=== PATIENT | female | born 1985 | race Caucasian/White ===

== ENCOUNTER 2017-01-28 08:00 | Emergency (ER) | payer OTHER ==
[~2017-01-28] VITALS: Wt 72.0 kg
--- NOTE | 2017-01-28 08:53 | RADRPT ---
PROCEDURE: US OB. CLINICAL INDICATION: Pelvic pain. TECHNIQUE: Transabdominal and transvaginal imaging of the uterus was performed. COMPARISON: 10/18/2014. FINDINGS: A single intrauterine is present with identification of a gestational sac, pole, and yolk sac. [place] rump length measures 6.6 cm, corresponding to a gestational age of 12 weeks 6 days. Real time examination shows cardiac activity. The heart rate is 161 beats per minute. No myoma or adnexal mass. There is a dominant follicle within the right ovary measuring up to 2 cm. Placenta is posterior in location. IMPRESSION: 1. Single viable intrauterine gestation of approximately 12 weeks 6 days. The estimated date of de livery is 08/06/2017 on the basis of this examination. 2. Examination is within normal limits. RPTAT: EE .Bryant Rivera MD, Date Time Electronically viewed and signed by .Bryant Rivera MD, on 01/28/2017 08:58 .C/
[2017-01-28 09:03] LABS: ADD SCAN DIFF NO
[2017-01-28 09:06] LABS: BASOPHIL # 0.1 10^3/ul (0.0-0.1); BASOPHILS % 0.5 % (0.0-2.0); EOSINOPHILS # 0.2 10^3/ul (0.0-0.5); EOSINOPHILS % 1.4 % (0.0-7.0); HEMATOCRIT 36.7 % (37.0-47.0); HEMOGLOBIN 12.4 g/dl (12.0-16.0); LYMPHOCYTES # 2.5 10^3/ul (0.8-2.9); LYMPHOCYTES % 20.1 % (15.0-51.0); MEAN CORPUSCULAR HEMOGLOBIN 28.7 pg (29.0-33.0); MEAN CORPUSCULAR HGB CONC 33.8 g/dl (32.0-37.0); MEAN PLATELET VOLUME 9.1 fl (7.4-10.4); MONOCYTE # 0.7 10^3/ul (0.3-0.9); MONOCYTES % 5.7 % (0.0-11.0); NEUTROPHIL # 8.9 10^3/ul (1.6-7.5); NEUTROPHILS % 71.8 % (39.0-77.0); PLATELET COUNT 301 10^3/UL (140-415); RED BLOOD COUNT 4.32 10^6/ul (4.20-5.40); RED CELL DISTRIBUTION WIDTH 12.5 % (11.5-14.5); WHITE BLOOD COUNT 12.4 10^3/ul (4.8-10.8)
[2017-01-28 09:25] LABS: ADD UMIC YES; UR ASCORBIC ACID NEGATIVE (NEGATIVE); UR BILIRUBIN (Dip) NEGATIVE (NEGATIVE); UR BLOOD (Dip) NEGATIVE (NEGATIVE); UR CLARITY SLIGHTLY CLOUDY (CLEAR); UR COLOR YELLOW (YELLOW); UR GLUCOSE (Dip) NEGATIVE (NEGATIVE); UR KETONES (Dip) NEGATIVE (NEGATIVE); UR LEUKOCYTE ESTERASE (Dip) 1+ Leu/ul (NEGATIVE); UR MUCUS FEW /HPF (NONE SEEN); UR NITRITE (Dip) NEGATIVE (NEGATIVE); UR RBC 1 /HPF (0-5); UR SPECIFIC GRAVITY (Dip) 1.011 (1.003-1.030); UR SQUAMOUS EPITHELIAL CELL FEW /HPF (FEW); UR TOTAL PROTEIN (Dip) NEGATIVE (NEGATIVE); UR UROBILINOGEN (Dip) NEGATIVE (NEGATIVE)
[2017-01-28] MEDS ORDERED: NITR-58 PO (11:00)
[2017-01-28] MEDS ORDERED: ACET500C5 PO (11:00)
--- NOTE | 2017-01-28 11:17 | ERD ---
ER Documentation Chief Complaint Date/Time DATE: 01/28/17 TIME: 11:08 Chief Complaint LOWER BACK PAIN 13 WEEKS PREG HPI 31-year-old female patient with no significant past medical history is a A1 presents the ED complaining of lower back pain and urgency with frequent urination. States that she still has to see her LAWN SERVICE SUPERVISOR on February 03, 2017. States that his name is Dr. Patel. Denies any fever, chills, abdominal pain, vaginal bleeding, dysuria, hematuria. Patient also reports that she does some heavy lifting with her 30 lb child. Denies any saddle anesthesia, urine or bowel incontinence, urinary retention, numbness or tingling. Patient is walking without difficulty. ROS All systems reviewed and are negative except as per history of present illness. Medications Home Meds Active Scripts Acetaminophen* (Tylophen*) 500 Mg Capsule, 1 CAP PO Q6H Y for PAIN AND OR ELEVATED TEMP, #20 CAP Prov:MICHAEL DAILY PA-C 01/28/17 Nitrofurantoin Monohyd Macrocr* (Macrobid*) 100 Mg Capsr, 100 MG PO BID for 7 Days, CAP Prov:MICHAEL DAILY PA-C 01/28/17 Allergies Allergies: Coded Allergies: No Known Allergy (Unverified , 01/28/17) PMhx/Soc Medical and Surgical Hx: pt denies Medical Hx, pt denies Surgical Hx History of Surgery: No Anesthesia Reaction: No Hx Neurological Disorder: No Hx Respiratory Disorders: No Hx Cardiac Disorders: No Hx Psychiatric Problems: No Hx Miscellaneous Medical Probl: Yes (uti) Hx Alcohol Use: No Hx Substance Use: No Hx Tobacco Use: No Smoking Status: Never smoker Physical Exam Vitals Vital Signs Date Time Temp Pulse Resp B/P Pulse Ox O2 Delivery O2 Flow Rate FiO2 01/28/17 08:03 98.0 102 18 137/67 99 Physical Exam Const: [id number], well-nourished. In no acute distress. Head: Atraumatic, normocephalic Eyes: Normal Conjunctiva without injection. No purulent discharge. ENT: Normal external ear, nose. Moist oropharynx without tonsillar exudates. Non -erythematous pharynx. Uvula midline. No drooling. No trismus. Neck: No cervical midline tenderness. Full range of motion. No meningismus. No cervical lymphadenopathy. No JVD. Resp: Clear to auscultation bilaterally. No wheezing, rhonchi, rales, or crackles. No accessory muscle use. No retractions. Cardio: Regular rate and rhythm. No murmurs, rubs or gallops. Abd: Soft, nontender, non distended. Normal bowel sounds. No palpable masses. No rebound tenderness. No guarding. Negative McBurney's point. Negative psoas sign. Negative obturator sign. Skin: No petechiae or rashes Back: No midline tenderness. No CVA tenderness. Tenderness to palpation of the bilateral lumbar muscles. Full range of motion with extension, flexion, rotational movements. Ext: No cyanosis, or edema. Neur: Awake and alert. Normal gait. Normal coordination. Psych: Normal Mood and Affect Result Diagram: 01/28/17 0855 Results 24 hrs Laboratory Tests Test 01/28/17 08:40 01/28/17 08:55 Urine Color YELLOW Urine Clarity SLIGHTLY CLOUDY Urine pH 6.0 Urine Specific [place] 1.011 Urine Ketones NEGATIVEmg/dL Urine Nitrite NEGATIVEmg/dL Urine Bilirubin NEGATIVEmg/dL Urine Urobilinogen NEGATIVEmg/dL Urine Leukocyte Esterase 1+Aure/ul Urine Microscopic RBC 1/HPF Urine Microscopic WBC 2/HPF Urine Squamous Epithelial Cells FEW/HPF Urine Mucus FEW/HPF Urine Hemoglobin NEGATIVEmg/dL Urine Glucose NEGATIVEmg/dL Urine Total Protein NEGATIVEmg/dl White Blood Count 12.410^3/ul Red Blood Count 4.3210^6/ul Hemoglobin 12.4g/dl Hematocrit 36.7% Mean Corpuscular Volume 85.0fl Mean Corpuscular Hemoglobin 28.7pg Mean Corpuscular Hemoglobin Concent 33.8g/dl Red Cell Distribution Width 12.5% Platelet Count 76054^3/UL Mean Platelet Volume 9.1fl Neutrophils % 71.8% Lymphocytes % 20.1% Monocytes % 5.7% Eosinophils % 1.4% Basophils % 0.5% Neutrophils # 8.910^3/ul Lymphocytes # 2.510^3/ul Monocytes # 0.710^3/ul Eosinophils # 0.210^3/ul Basophils # 0.110^3/ul Nucleated Red Blood Cells # 0.010^3/ul Beta HCG, Quantitative 07173.0mIU/ml Procedures/MDM 31-year-old female patient with no significant past medical history is a A1 presents to the ED complaining of lower back pain and slight urgency to urinate. Patient is afebrile and nontoxic-appearing. Patient has normal vital signs. An ultrasound, beta-hCG, CBC, type and RH, UA was ordered to evaluate patient. CBC: Leukocytosis of 12.1. No evidence of severe infection or anemia Urine: No elevation in nitrites. 1+ leukocyte esterase, hematuria. Rh: A positive No indication for Rhogam at this time. beta Hc PROCEDURE: US OB. CLINICAL INDICATION: Pelvic pain. TECHNIQUE: Transabdominal and transvaginal imaging of the uterus was performed. COMPARISON: 10/18/2014. FINDINGS: A single intrauterine is present with identification of a gestational sac, pole, and yolk sac. [place] rump length measures 6.6 cm, corresponding to a gestational age of 12 weeks 6 days. Real time examination shows cardiac activity. The heart rate is 161 beats per minute. No myoma or adnexal mass. There is a dominant follicle within the right ovary measuring up to 2 cm. Placenta is posterior in location. IMPRESSION: 1. Single viable intrauterine gestation of approximately 12 weeks 6 days. The estimated date of delivery is 08/06/2017 on the basis of this examination. 2. Examination is within normal limits. Patient has a single viable intrauterine gestation of approximately 12 weeks and 6 days. Patient has 1+ leukocyte esterase and with her urgency with urination, she could likely have a urinary tract infection. Patient is appropriate for outpatient management. There is low suspicion for pyelonephritis as patient does not have any CVA tenderness and does not have a fever. Patient's back pain could likely be secondary to lifting her 30 pound child. Low suspicion for symptomatic anemia, ectopic , sepsis, PID, appendicitis, ovarian torsion, tubo-ovarian abscess, surgical abdomen, or other emergent conditions. Patient is ambulating here in the ED without difficulty. Denies saddle anesthesia, numbness or tingling, urine or bowel incontinence, weakness. Low suspicion for cauda equina syndrome, cord compression, nephrolithiasis, aortic aneurysm, aortic dissection, epidural abscess, spinal hematoma, malignancy, pyelonephritis, or other emergent conditions. Discharge medications: Macrobid, Tylenol Patient to follow up with LAWN SERVICE SUPERVISOR in 2 days for further evaluation and treatment. Patient is to return sooner to the ED for any worsening symptoms. Patient's questions were answered. Patient understood and agreed with discharge plan. Departure Diagnosis: Primary Impression: Back pain Back pain location: back pain in unspecified location Chronicity: unspecified Back pain laterality: unspecified Qualified Code: M54.9 - Back pain, unspecified back location, unspecified back pain laterality, unspecified chronicity Additional Impression: Urgency of urination Condition: Stable Patient Instructions: Back Pain During , Urinary Tract Infections in Women Referrals: [facility] YOU HAVE RECEIVED A MEDICAL SCREENING EXAM AND THE RESULTS INDICATE THAT YOU DO NOT HAVE A CONDITION THAT REQUIRES URGENT TREATMENT IN THE EMERGENCY DEPARTMENT. FURTHER EVALUATION AND TREATMENT OF YOUR CONDITION CAN WAIT UNTIL YOU ARE SEEN IN YOUR DOCTORS OFFICE WITHIN THE NEXT 1-2 DAYS. IT IS YOUR RESPONSIBILITY TO MAKE AN APPOINTMENT FOR FOLOW-UP CARE. IF YOU HAVE A PRIMARY DOCTOR --you should call your primary doctor and schedule an appointment IF YOU DO NOT HAVE A PRIMARY DOCTOR YOU CAN CALL OUR PHYSICIAN REFERRAL HOTLINE AT IF YOU CAN NOT AFFORD TO SEE A PHYSICIAN YOU CAN CHOSE FROM THE FOLLOWING [facility] [address] [facility]. [facility] [address] [facility]. [facility] [address] [facility] [facility] [address] [facility] [facility] [address] [facility]. [facility]. [address] [facility]. [facility] YOU HAVE RECEIVED A MEDICAL SCREENING EXAM AND THE RESULTS INDICATE THAT YOU DO NOT HAVE A CONDITION THAT REQUIRES URGENT TREATMENT IN THE EMERGENCY DEPARTMENT. FURTHER EVALUATION AND TREATMENT OF YOUR CONDITION CAN WAIT UNTIL YOU ARE SEEN IN YOUR DOCTORS OFFICE WITHIN THE NEXT 1-2 DAYS. IT IS YOUR RESPONSIBILITY TO MAKE AN APPOINTMENT FOR FOLOW-UP CARE. IF YOU HAVE A PRIMARY DOCTOR --you should call your primary doctor and schedule and appointment IF YOU DO NOT HAVE A PRIMARY DOCTOR YOU CAN CALL OUR PHYSICIAN REFERRAL HOTLINE AT . IF YOU CAN NOT AFFORD TO SEE A PHYSICIAN YOU CAN CHOSE FROM THE FOLLOWING [facility] INSTITUTIONS: [facility] [address] [place] [address] [facility] [address] [place] [address] [facility] + [facility] [address] [place] [address] [facility] Additional Instructions: Keep your appointment on February 03, 2017 with your LAWN SERVICE SUPERVISOR for further evaluation and treatment. See the doctor sooner or return here if your condition worsens before your appointment time such as fever, vaginal bleeding, worsening abdominal pain, etc. MICHAEL DAILY PA-C Jan 28, 2017 11:16
== END 2017-01-28 11:46 | disposition home or self-care (01) ==
LOC: FTE 08:00
DX: O99.89 Other specified diseases and conditions complicating pregnancy, childbirth and the puerperium (principal); M54.5 Low back pain; R39.15 Urgency of urination; R10.2 Pelvic and perineal pain; Z3A.12 12 weeks gestation of pregnancy
CPT/HCPCS: 36415; 76801; 81001; 84702; 85025; 86900; 86901

== ENCOUNTER 2017-05-11 22:31 | Outpatient (CLI) | payer OTHER ==
[~2017-05-11] VITALS: Ht 165.1 cm; Wt 109.2 kg
[~2017-05-11 22:31] MED LIST: ACET500C5 PO; NITR-58 PO
[2017-05-12 00:37] VITALS: Ht 165.1 cm; Wt 109.2 kg
[2017-05-12 00:38] VITALS: BP 115/68; PULSE 89; RESP 18
[2017-05-12] MEDS ORDERED: PREN1TAB79 PO (00:39)
[2017-05-12] MEDS ORDERED: ACETAMINOPHEN 325 MG TAB PO ONE (01:30)
[2017-05-12 01:49] LABS: ADD UMIC YES; UR ASCORBIC ACID NEGATIVE (NEGATIVE); UR BILIRUBIN (Dip) NEGATIVE (NEGATIVE); UR BLOOD (Dip) NEGATIVE (NEGATIVE); UR CLARITY CLEAR (CLEAR); UR COLOR YELLOW (YELLOW); UR GLUCOSE (Dip) NEGATIVE (NEGATIVE); UR KETONES (Dip) NEGATIVE (NEGATIVE); UR LEUKOCYTE ESTERASE (Dip) NEGATIVE Leu/ul (NEGATIVE); UR MUCUS FEW /HPF (NONE SEEN); UR NITRITE (Dip) NEGATIVE (NEGATIVE); UR RBC 1 /HPF (0-5); UR SPECIFIC GRAVITY (Dip) 1.031 (1.003-1.030); UR SQUAMOUS EPITHELIAL CELL FEW /HPF (FEW); UR TOTAL PROTEIN (Dip) 1+ mg/dl (NEGATIVE); UR UROBILINOGEN (Dip) 1+ mg/dL (NEGATIVE)
--- NOTE | 2017-05-12 02:13 | RADRPT ---
PROCEDURE: Limited OB ultrasound CLINICAL INDICATION: labor TECHNIQUE: Limited sonographic evaluation of the gravid uterus was performed to assess the cervica l length COMPARISON: 01/28/2017. FINDINGS: Single intrauterine is present. Cervix measures 5.54 cm in length.. IMPRESSION: Cervix 5.54 cm length. RPTAT: HMVK .Jorge Recio MD, Date Time Electronically viewed and signed by .Jorge Recio MD, on 05/12/2017 02:12 .K/
--- NOTE | 2017-05-12 04:37 | TRIAGE ---
OB Triage Datetime Report Generated by CPN: 05/12/2017 04:36 Datetime: 05/12/2017 02:28 Stage of : OB Triage Labor Evaluation Frequency: None noted or palpated. Pt denies cramping. Monitor Mode: External Resting Tone [place]: Relaxed Heart Rate FHR Baseline Rate: 130 Monitor Mode: External US FHR Baseline Changes: No Baseline Change Variability: Moderate 6-25 bpm Accelerations: 15X15 Decelerations: None Category: Category I Datetime: 05/12/2017 02:22 Stage of : OB Triage Datetime: 05/12/2017 02:00 Stage of : OB Triage Labor Evaluation Frequency: Irregular Monitor Mode: External Duration (sec)2399: 40-60 Quality: Mild Pattern: Normal: <= 5 Contractions in 10 Minutes Resting Tone [place]: Relaxed Heart Rate FHR Baseline Rate: 130 Monitor Mode: External US FHR Baseline Changes: No Baseline Change Variability: Moderate 6-25 bpm Accelerations: 15X15 Decelerations: None Category: Category I Datetime: 05/12/2017 01:39 Stage of : OB Triage Datetime: 05/12/2017 01:31 Stage of : OB Triage Datetime: 05/12/2017 01:30 Stage of : OB Triage Temperature Route: Oral Datetime: 05/12/2017 01:24 Stage of : OB Triage Datetime: 05/12/2017 01:21 Stage of : OB Triage Datetime: 05/12/2017 01:11 Stage of : OB Triage Datetime: 05/12/2017 01:09 Stage of : OB Triage Datetime: 05/12/2017 01:00 Labor Evaluation Frequency: x1 Monitor Mode: External Duration (sec)2399: 60 Quality: Mild Pattern: Normal: <= 5 Contractions in 10 Minutes Resting Tone [place]: Relaxed Heart Rate FHR Baseline Rate: 130 Monitor Mode: External US Variability: Moderate 6-25 bpm Accelerations: 15X15 Datetime: 05/12/2017 00:45 Stage of : OB Triage Datetime: 05/12/2017 00:00 Labor Evaluation Frequency: x2 Monitor Mode: External Duration (sec)2399: 40 Quality: Mild Pattern: Normal: <= 5 Contractions in 10 Minutes Resting Tone [place]: Relaxed Heart Rate FHR Baseline Rate: 135 Monitor Mode: External US Variability: Moderate 6-25 bpm Accelerations: 15X15 Decelerations: None Category: Category I Datetime: 05/11/2017 23:30 Stage of : OB Triage Assessment Type: Triage Time of Arrival: 05/11/2017 22:24 Arrived By: Ambulatory Arrived From: Home Chief Complaint: Abdominal pressure Movement: Present Contractions: Denies/Absent Rupture of Membranes: Denies Vaginal Bleeding: None Vaginal Discharge: Denies Recent Sexual Intercouse: Denies Abdominal Trauma: Not Applicable Patient Complaints: Other Time Provider Notified: 05/12/2017 01:09 Provider Notified: Initial Plan: UA, FFN, Cervical length, PO hydration Maternal Assessment Level of Consciousness: Fully Conscious DTR's/Clonus: DTRs 2+; No Clonus Headache: Denies Blurred Vision: No Respiratory Effort: Unlabored; Regular Rhythm; Equal Expansion Breath Sounds, Left: Clear and Equal Breath Sounds, Right: Clear and Equal Nausea/Vomiting: Denies RUQ Epigastric Pain: Denies Lower Extremities Edema: None Degree: None Upper Extremities Edema: None Degree: None Facial Edema: None Temperature Route: Oral Fall Risk Assessment History of Falling: (0) No Secondary Diagnosis: (0) No Ambulatory Aid: (0) Bedrest/Nurse Assist IV Therapy: (0) No Gait: (0) Normal/Bedrest/Immobile Mental Status: (0) Oriented to Own Ability Pain Assessment Pain Scale: 5 Pain Presence: Intermittent Pain Type: Pressure Pain Location: Abdomen Pain Relief Measures: Comfort Measures Pain Assessment Comments: Pt reports abdominal pressure but states it is discomfort not pain Datetime: 05/11/2017 23:28 Stage of : OB Triage Monitor Mode: External Contraction Comments: [place] applied Heart Rate FHR Baseline Rate: 135 Monitor Mode: External US Comments: EFM applied
--- NOTE | 2017-05-12 05:26 | PN ---
Triage Information Date/Time Reason for visit: Uterine contractions Weeks of Gestation 27 weeks and 5 days /Para Diabetes: none Hypertention: none Additional information 31 years old with IUP at 27 weeks and 5 days presented with complaint of pelvic pain and pressure. She is morbidly obese. She denies any leaking of fluid, vaginal bleeding or any other symptoms. Denies any urinary symptoms. Objective Vital Signs Date Time Temp Pulse Resp B/P Pulse Ox O2 Delivery O2 Flow Rate FiO2 05/12/17 00:38 98.0 89 18 115/68 Room Air Heart Rate: 130's Contractions: >10 Minutes Apart Exam General appearance: Alert and oriented 4. Patient does not appear to be in any acute distress. Abdomen: Soft, gravid, fundal height consistent with gestational age Body habitus, morbidly obese Extremities: No calf tenderness, no click, no cords palpable. 2+ bilateral lower extremity symmetric edema NST: Category 1, appropriate for gestational age Occasional random contractions in the monitor . Results/Medications Results 24 hrs Laboratory Tests Test 05/12/17 00:50 05/12/17 01:20 Urine Color YELLOW Urine Clarity CLEAR Urine pH 6.0 Urine Specific [place] 1.031 H Urine Ketones NEGATIVE Urine Nitrite NEGATIVE Urine Bilirubin NEGATIVE Urine Urobilinogen 1+ H Urine Leukocyte Esterase NEGATIVE Urine Microscopic RBC 1 Urine Microscopic WBC 1 Urine Squamous Epithelial Cells FEW Urine Mucus FEW A Urine Hemoglobin NEGATIVE Urine Glucose NEGATIVE Urine Total Protein 1+ H Fibronectin NEGATIVE Imaging Results PROCEDURE: Limited OB ultrasound CLINICAL INDICATION: labor TECHNIQUE: Limited sonographic evaluation of the gravid uterus was performed to assess the cervical length COMPARISON: 01/28/2017. FINDINGS: Single intrauterine is present. Cervix measures 5.54 cm in length.. IMPRESSION: Cervix 5.54 cm length. RPTAT: HMVK Disposition: Discharge Assessment/Plan IUP at 27 weeks and 5 days occasional contraction. No evidence of labor next fibronectin negative. Cervical length more than 5 cm. Exam consistent with false labor pain. Patient will be discharged home. Patient will be percussion over the kick count and follow-up within 24-48 hours with primary OB discussed with the patient. Patient verbalized understanding. NERIS CALDERON MD May 12, 2017 05:26
== END 2017-05-12 02:33 | disposition home or self-care (01) ==
LOC: OBT 22:31 → L-D 22:36 → OBT 05-12 02:33
PROVIDERS: ATTEND Obstetrics & Gynecology
DX: O62.9 Abnormality of forces of labor, unspecified (principal); O99.212 Obesity complicating pregnancy, second trimester; Z3A.27 27 weeks gestation of pregnancy
CPT/HCPCS: 76817; 81001; 82731; Z7500; G0463